=== PATIENT | female | born 1975 | race Caucasian/White ===

== ENCOUNTER 2017-08-07 14:49 | Outpatient (CLI) | payer OTHER | END 2017-08-07 21:06 | disposition home or self-care (01) | LOC: SCT 14:49 | PROVIDERS: ATTEND Psychiatry & Neurology Neurology with Special Qualifications in Child Neurology | DX: M47.892 Other spondylosis, cervical region (principal); R20.0 Anesthesia of skin | CPT/HCPCS: 72125-TC ==

== ENCOUNTER 2017-12-31 08:57 | Outpatient (CLI) | payer OTHER | END 2017-12-31 20:07 | disposition home or self-care (01) | LOC: SMI 08:57 | PROVIDERS: ATTEND Psychiatry & Neurology Neurology with Special Qualifications in Child Neurology | DX: M48.02 Spinal stenosis, cervical region (principal); M25.78 Osteophyte, vertebrae; M54.12 Radiculopathy, cervical region | CPT/HCPCS: 72141 ==

== ENCOUNTER 2018-04-08 05:00 | Observation (INO) | payer OTHER ==
[2018-04-07 15:31] LABS: HCG,QUAL RESULT NEGATIVE (NEGATIVE)
[~2018-04-08] VITALS: Ht 162.6 cm; Wt 88.0 kg
[2018-04-08] MEDS ORDERED: CEFAZOLIN 1 GM IVPB PREMIX 50 ML IV ONE (05:58)
[2018-04-08] MEDS ORDERED: DEXAMETHASONE SOD PHOSPHATE 4 MG/ML VIAL IVP ONE (07:15)
[2018-04-08] MEDS ORDERED: PROPOFOL 200MG/ 20ML VIAL (DIPRIVAN) IV ONE (07:15)
[2018-04-08] MEDS ORDERED: fentaNYL CITRATE 250 MCG/5 ML AMP IV ONE (07:15)
[2018-04-08] MEDS ORDERED: SUCCINYLCHOLINE CHLORIDE 20 MG/ML(QUELICIN) IVP ONE (07:15)
[2018-04-08] MEDS ORDERED: MIDAZOLAM HCL 5 MG/5 ML VIAL IVP ONE (07:15)
[2018-04-08] MEDS ORDERED: SEVOFLURANE 15 MIN GAS INH ONE (07:15)
[2018-04-08] MEDS ORDERED: LR 1,000 ML IV.SOLN IV ONE (07:15)
[2018-04-08] MEDS ORDERED: THROMBIN (BOVINE) 5000 UNITS/ VIAL TP ONE (07:15)
[2018-04-08] MEDS ORDERED: BUPIVACAINE /EPINEPHRINE/PF 0.25% 30 ML VIAL INJ ONE (07:15)
[2018-04-08] MEDS ORDERED: ONDANSETRON HCL 4 MG/2 ML VIAL IVP ONE (07:15)
[2018-04-08] MEDS ORDERED: POLYMYXIN 500,000/BACIT.10,000 UNITS in NS IRR 1 L IR ONE (07:28)
[2018-04-08] MEDS ORDERED: GLUXR500 PO (07:37)
[2018-04-08] MEDS ORDERED: LR 1,000 ML IV SCH (10:22)
[2018-04-08] MEDS ORDERED: ONDANSETRON HCL 4 MG/2 ML VIAL IVP PRN ×2 (10:30→13:30)
[2018-04-08] MEDS ORDERED: MORPHINE 4 MG/ML INJ. SYRINGE IVP PRN ×3 (10:30)
[2018-04-08] MEDS ORDERED: INSULIN ASPART 100 UNITS/ML, 10 ML VIAL (NovoLOG) SUBCUT PRN (11:00)
[2018-04-08] MEDS ORDERED: BACLOFEN 10 MG TABLET PO PRN (11:00)
[2018-04-08] MEDS ORDERED: ACETAMINOPHEN 325 MG TABLET PO PRN (11:00)
[2018-04-08] MEDS ORDERED: MORPHINE 4 MG/ML INJ. SYRINGE ONE (11:40)
[2018-04-08] MEDS ORDERED: ONDANSETRON HCL 4 MG/2 ML VIAL ONE (11:42)
[2018-04-08] MEDS ORDERED: HYDROmorphone 1 MG INJ. 1 MG/ML AMPUL IVP PRN ×2 (13:30)
[2018-04-08] MEDS ORDERED: DIPHENHYDRAMINE HCL 25 MG CAPSULE PO PRN (13:30)
[2018-04-08] MEDS: CEFAZOLIN 1 GM IVPB PREMIX 50 ML IV SCH ×2 (13:33→21:31)
[2018-04-08] MEDS: NACL 0.9% 1,000 ML IV SCH (13:36)
[2018-04-08 15:07] VITALS: BP_SYST 137
[2018-04-08 16:20] VITALS: BP_SYST 134
[2018-04-08] MEDS ORDERED: INSULIN REGULAR, HUMAN 100 UNITS/ML, 10 ML VIAL (novoLIN R) SUBCUT PRN (17:45)
[2018-04-08] MEDS ORDERED: GLUCOSE 15 GM GEL (in 37.5 GM TUBE) PO PRN (18:15)
[2018-04-08] MEDS ORDERED: D5W 1,000 ML IV PRN (18:15)
[2018-04-08] MEDS ORDERED: DEXTROSE 50%-WATER 50 ML DISP.SYRIN IVP PRN (18:15)
[2018-04-08 20:00] VITALS: BP_SYST 137
[2018-04-08] MEDS: DOCUSATE SODIUM 100 MG CAPSULE PO SCH (21:00)
[2018-04-09 00:32] VITALS: BP_SYST 102
[2018-04-09] MEDS: NACL 0.9% 1,000 ML IV SCH (06:07)
[2018-04-09] MEDS: CEFAZOLIN 1 GM IVPB PREMIX 50 ML IV SCH (06:07)
[2018-04-09] MEDS: HYDROcodone/ACETAMIN 10-325 MG TAB PO PRN ×2 (06:17→11:36)
[2018-04-09] MEDS ORDERED: metFORMIN HCL 500 MG TABLET PO SCH (07:00)
[2018-04-09 08:10] VITALS: BP_SYST 125
[2018-04-09] MEDS: DOCUSATE SODIUM 100 MG CAPSULE PO SCH (08:26)
[2018-04-09 12:28] VITALS: BP_SYST 143
[2018-04-09 15:07] VITALS: BP_SYST 143
== END 2018-04-09 15:43 | disposition home or self-care (01) ==
LOC: SMU 05:00 → INTOOBSV 05:00 → SMU 07:42
PROVIDERS: ADMIT Neurological Surgery; ATTEND Neurological Surgery
DX: M48.02 Spinal stenosis, cervical region (principal); M50.222 Other cervical disc displacement at C5-C6 level; G99.2 Myelopathy in diseases classified elsewhere; M25.78 Osteophyte, vertebrae
CPT/HCPCS: 22551; 36415; 76000; 82947; 82948; 82962 ×2; 84703; 87081; 94010; 95940; 96365; 96366 ×2; 96375; 97110; 97116; 97162; 97530 ×2; C1713 ×3; G0378 ×2; J0330; J0690; J1100; J1815; J2250; J2270; J2405; J2704; J3010; J3490; J7030 ×2; J7120; J1170